=== PATIENT | female | born 2000 | race Caucasian/White ===

== ENCOUNTER 2018-04-10 11:16 | Emergency (ER) | payer OTHER ==
[2018-04-10 11:32] LABS: URINE HCG POC HCG NEGATIVE (Negative)
[2018-04-10 11:43] LABS: BILIRUBIN,URINE NEGATIVE (NEG); CLARITY,URINE TURBID; COLOR,URINE YELLOW; GLUCOSE,URINE NEGATIVE (NEG); NITRITE,URINE NEGATIVE (NEG); PH,URINE 7.5; PROTEIN,URINE NEGATIVE (NEG-TRACE)
[2018-04-10 11:44] LABS: ADD MAN DIFF? NO
[2018-04-10 11:54] LABS: BASO # 0.1 x10^3/uL (0.0-0.2); BASO % 1 % (0-3); EOS # 0.2 x10^3/uL (0.0-0.7); EOS % 2 % (0-3); HEMATOCRIT 40.9 % (36.0-47.0); HEMOGLOBIN 13.8 g/dL (12.0-15.5); LYMPH % 24 % (24-48); MEAN CORPUSCULAR HEMOGLOBIN 28 pg (25-35); MEAN CORPUSCULAR HGB CONC 34 g/dL (31-37); MEAN CORPUSCULAR VOLUME 83 fL (79-100); MONO # 0.5 x10^3/uL (0.0-1.1); MONO % 6 % (0-9); NEUT # 5.7 x10^3uL (1.8-7.7); NEUT % 67 % (31-73); PLATELET COUNT 304 x10^3/uL (140-400); RED BLOOD COUNT 4.92 x10^6/uL (3.50-5.40); RED CELL DISTRIBUTION WIDTH 15.2 % (11.5-14.5); WHITE BLOOD COUNT 8.5 x10^3/uL (4.0-11.0)
[2018-04-10 11:55] LABS: ANION GAP 9 (6-14); BACTERIA,URINE 0 /HPF (0-FEW); BLOOD UREA NITROGEN 17 mg/dL (7-20); BUN/CREATININE RATIO 21 (6-20); CALCIUM 8.7 mg/dL (8.5-10.1); CARBON DIOXIDE 28 mmol/L (21-32); CHLORIDE 103 mmol/L (98-107); CREATININE 0.8 mg/dL (0.6-1.0); GFR 92.4; GLUCOSE 101 mg/dL (70-99); POTASSIUM 4.1 mmol/L (3.5-5.1); RBC,URINE 0 /HPF (0-2); SODIUM 140 mmol/L (136-145); SQUAMOUS EPITHELIAL CELL,UR MOD /LPF; WBC,URINE RARE /HPF (0-4)
[2018-04-10 11:56] LABS: AMORPHOUS SEDIMENT,UR PRESENT /HPF
[2018-04-10 12:01] LABS: ALBUMIN 3.8 g/dL (3.4-5.0); ALK PHOS 68 U/L (46-116); ALT (SGPT) 13 U/L (14-59); AST (SGOT) 12 U/L (15-37); TOTAL BILIRUBIN 0.4 mg/dL (0.2-1.0); TOTAL PROTEIN 7.5 g/dL (6.4-8.2)
[2018-04-10] MEDS: IV NORMAL SALINE 1000ML BAG 1,000 ML IV (12:34)
[2018-04-10] MEDS: KETOROLAC 30 MG/ML INJ. IV (13:29)
== END 2018-04-10 13:50 | disposition home or self-care (01) ==
LOC: ER 11:16
DX: R10.9 Unspecified abdominal pain (principal); R11.0 Nausea; N20.0 Calculus of kidney; Z88.0 Allergy status to penicillin
CPT/HCPCS: 36415; 74176; 80053; 81001; 81025; 85025; 87086; 96374; 99285-25; J1885; J7030

== ENCOUNTER 2018-06-16 05:56 | Emergency (ER) | payer SELFPAY, OTHER ==
[2018-06-16 06:17] LABS: URINE HCG POC HCG NEGATIVE (Negative)
[2018-06-16 06:23] LABS: BILIRUBIN,URINE NEGATIVE (NEG); COLOR,URINE ORANGE; GLUCOSE,URINE NEGATIVE (NEG); NITRITE,URINE POSITIVE (NEG); PROTEIN,URINE 100 mg/dL (NEG-TRACE)
[2018-06-16 06:37] LABS: BACTERIA,URINE FEW /HPF (0-FEW); CLARITY,URINE HAZY; SQUAMOUS EPITHELIAL CELL,UR FEW /LPF; WBC,URINE >40 /HPF (0-4)
[2018-06-16] MEDS: PHENAZOPYRIDINE 200 MG TABLET. PO (07:13)
== END 2018-06-16 08:04 | disposition home or self-care (01) ==
LOC: ER 08:04
DX: N39.0 Urinary tract infection, site not specified (principal); M54.5 Low back pain; Z88.0 Allergy status to penicillin
CPT/HCPCS: 81001; 81025; 96365; 99284; J0690